=== PATIENT | female | born 1955 | race African-American/Black ===

== ENCOUNTER 2022-07-05 13:04 | Observation (INO) | payer OTHER ==
[2022-07-05] MEDS ORDERED: ACETAMINOPHEN 1000 MG/100 ML BAG IVPB ONE (15:03)
[2022-07-05] MEDS ORDERED: ACETAMINOPHEN INJECTION 100 ML IVPB ONE (15:13)
[2022-07-05 15:44] LABS: BASO % 0.4 % (0-2.0); EOS % 0.6 % (0-4.5); HEMATOCRIT 31.9 % (32.4-45.2); HEMOGLOBIN 10.7 GM/dL (10.7-15.3); LYMPH % 20.9 % (8-40); MCH 29.7 pg (25.7-33.7); MCHC 33.4 g/dl (32.0-36.0); MEAN CELL VOLUME 88.9 fl (80-96); MEAN PLT VOLUME 6.8 fl (7.5-11.1); MONO % 9.8 % (3.8-10.2); NEUT % 68.3 % (42.8-82.8); PLATELET COUNT 345 10^3/uL (134-434); RBC 3.59 M/mm3 (3.60-5.2); WHITE BLOOD COUNT 9.8 K/mm3 (4.0-10.0)
[2022-07-05 16:05] LABS: CALCIUM 9.8 mg/dL (8.5-10.1)
[2022-07-05 16:06] LABS: ALBUMIN 2.7 g/dl (3.4-5.0)
[2022-07-05 16:08] LABS: CREATININE 1.2 mg/dL (0.55-1.3)
[2022-07-05 16:10] LABS: BILIRUBIN,TOTAL 0.2 mg/dL (0.2-1); TOT PROT 7.8 g/dl (6.4-8.2)
[2022-07-05 16:30] LABS: ANISOCYTOSIS 3+; MACROCYTOSIS 0; TARGET CELLS 2+; TEAR DROP CELLS 1+
[2022-07-05] MEDS ORDERED: morphine CARPU-JECT 4 MG/1 ML DISP.SYRIN IVPUSH ONE (17:18)
[2022-07-05] MEDS ORDERED: morphine SULFATE 4 MG/ML VIAL ONE (17:21)
[2022-07-05] MEDS ORDERED: SODIUM CHLORIDE 0.9% 500 ML INFUS.BAG IV ONE (17:21)
[2022-07-05] MEDS ORDERED: morphine CARPU-JECT 2 MG/1 ML DISP.SYRIN IVPUSH ONE (21:28)
[2022-07-05] MEDS ORDERED: ONDANSETRON 4 MG/2 ML VIAL IVPUSH ONE (21:28)
[2022-07-05] MEDS ORDERED: ONDANSETRON 4 MG/2 ML VIAL ONE ×2 (22:00→22:16)
[2022-07-06] MEDS ORDERED: DOCUSATE SODIUM 100 MG CAPSULE (FP) PO PRN (02:45)
[2022-07-06] MEDS ORDERED: ACETAMINOPHEN 500 MG TABLET (FP) PO PRN (02:49)
[2022-07-06] MEDS: oxyCODONE HCL 5 MG TABLET PO PRN ×3 (02:54→20:48)
[2022-07-06 08:41] LABS: BASO % 0.4 % (0-2.0); EOS % 0.4 % (0-4.5); HEMATOCRIT 30.3 % (32.4-45.2); LYMPH % 22.9 % (8-40); MCH 29.3 pg (25.7-33.7); MEAN CELL VOLUME 88.9 fl (80-96); MONO % 8.1 % (3.8-10.2); NEUT % 68.2 % (42.8-82.8); PLATELET COUNT 361 10^3/uL (134-434); RBC 3.41 M/mm3 (3.60-5.2); RDW 23.9 % (11.6-15.6); WHITE BLOOD COUNT 9.3 K/mm3 (4.0-10.0)
[2022-07-06 09:32] LABS: ALBUMIN 2.7 g/dl (3.4-5.0); BLOOD UREA NITROGEN 21.3 mg/dL (7-18); CALCIUM 9.7 mg/dL (8.5-10.1)
[2022-07-06 09:35] LABS: CREATININE 1.1 mg/dL (0.55-1.3)
[2022-07-06 09:38] LABS: BILIRUBIN,TOTAL 0.4 mg/dL (0.2-1); TOT PROT 7.8 g/dl (6.4-8.2)
[2022-07-06] MEDS ORDERED: FENTANYL PATCH WASTE TD PRN ×2 (13:06→16:55)
[2022-07-06] MEDS ORDERED: fentaNYL 25mcg/hr PATCH.TD72 TD SCH (13:45)
[2022-07-06] MEDS ORDERED: fentaNYL 75mcg/hr PATCH.TD72 TD SCH (17:00)
[2022-07-06] MEDS: LOSARTAN POTASSIUM 25 MG TABLET PO SCH (17:52)
[2022-07-06] MEDS: ABACAVIR/DOLUTEGRAVIR/LAMIVUDI (TRIUMEQ) TABLET -NF PO SCH (20:48)
[2022-07-06] MEDS: INSULIN (LEVEMIR) 100 UNITS/ML UNITS SQ SCH (21:31)
[2022-07-07] MEDS: INSULIN SLIDING SCALE (NOVOLOG) 1 VIAL SQ SCH ×3 (06:21→16:48)
[2022-07-07] MEDS: oxyCODONE HCL 5 MG TABLET PO PRN (11:03)
[2022-07-07] MEDS: ENOXAPARIN NA (PORCINE) 40 MG/0.4 ML DISP.SYRIN SQ SCH (11:05)
[2022-07-07] MEDS: LOSARTAN POTASSIUM 25 MG TABLET PO SCH (11:05)
[2022-07-07] MEDS: ABACAVIR/DOLUTEGRAVIR/LAMIVUDI (TRIUMEQ) TABLET -NF PO SCH (11:06)
[2022-07-07 14:37] VITALS: BMI 17.3
[2022-07-07] MEDS: morphine SO4 SUSTAINED ACTING 15 MG TABLET.SA PO SCH ×2 (15:32→23:07)
[2022-07-07] MEDS: AMINO ACIDS/PROTEIN HYDROLYS 30 ML LIQUID.PKT PO SCH (16:49)
[2022-07-07] MEDS: INSULIN (LEVEMIR) 100 UNITS/ML UNITS SQ SCH (21:12)
[2022-07-08] MEDS: morphine SO4 SUSTAINED ACTING 15 MG TABLET.SA PO SCH ×2 (00:06→11:00)
[2022-07-08 05:54] VITALS: RESP 18
[2022-07-08] MEDS: INSULIN SLIDING SCALE (NOVOLOG) 1 VIAL SQ SCH ×3 (06:07→16:45)
[2022-07-08] MEDS: AMINO ACIDS/PROTEIN HYDROLYS 30 ML LIQUID.PKT PO SCH ×2 (07:36→16:45)
[2022-07-08] MEDS: LOSARTAN POTASSIUM 25 MG TABLET PO SCH (09:17)
[2022-07-08] MEDS: ABACAVIR/DOLUTEGRAVIR/LAMIVUDI (TRIUMEQ) TABLET -NF PO SCH (09:18)
[2022-07-08] MEDS: ENOXAPARIN NA (PORCINE) 40 MG/0.4 ML DISP.SYRIN SQ SCH (09:18)
[2022-07-08] MEDS: oxyCODONE HCL 5 MG TABLET PO PRN (15:46)
[2022-07-08 19:52] VITALS: BP 144/74; PULSE 101; TEMP 98.2
== END 2022-07-08 19:32 ==
LOC: JER 13:04 → JERBED 21:26 → J4S 07-06 03:17
PROVIDERS: ADMIT Internal Medicine; ATTEND Internal Medicine
PROC: 3E033NZ Introduction of Analgesics, Hypnotics, Sedatives into Peripheral Vein, Percutaneous Approach (ICD-10-PCS; principal; 2022-07-05)
PROC: 3E023GC Introduction of Other Therapeutic Substance into Muscle, Percutaneous Approach (ICD-10-PCS; 2022-07-05)
PROC: 3E013VG Introduction of Insulin into Subcutaneous Tissue, Percutaneous Approach (ICD-10-PCS; 2022-07-05)
PROC: 3E0337Z Introduction of Electrolytic and Water Balance Substance into Peripheral Vein, Percutaneous Approach (ICD-10-PCS; 2022-07-05)
DX: C34.90 Malignant neoplasm of unspecified part of unspecified bronchus or lung (principal); C78.00 Secondary malignant neoplasm of unspecified lung; I10 Essential (primary) hypertension; R07.9 Chest pain, unspecified; M54.9 Dorsalgia, unspecified; Z29.8 Encounter for other specified prophylactic measures
CPT/HCPCS: 0241U-QW; 36415; 71275-TC; 72128-TC; 72131-TC; 74174-TC; 76705-TC; 80053; 82962; 83690; 84484; 85025; 93005; 93010; 96372; 96374; 96375; 99285-25; G0378; Q9967

== ENCOUNTER 2022-07-21 09:29 | Inpatient (IN) | payer OTHER ==
[2022-07-21] MEDS ORDERED: PIPERACILLIN/TAZOBACTAM 4.5 GM VIAL IVPB ONE (09:35)
[2022-07-21] MEDS ORDERED: VANCOMYCIN 1,000 MG in DEXTROSE 5%-WATER - 250 ML IVPB ONE (09:35)
[2022-07-21] MEDS ORDERED: SODIUM CHLORIDE 0.9% 1000 ML INFUS.BAG IV ONE (09:36)
[2022-07-21] MEDS ORDERED: ACETAMINOPHEN 1000 MG/100 ML BAG IVPB ONE (09:36)
[2022-07-21] MEDS ORDERED: PIPERACILLIN/TAZOB 4.5 GM 4.5 GM/100 ML BAG IVPB ONE (09:55)
[2022-07-21] MEDS ORDERED: ACETAMINOPHEN INJECTION 100 ML IVPB ONE (09:55)
[2022-07-21] MEDS ORDERED: VANCOMYCIN/WATER FOR INJ (PEG) 1,000 MG/200 ML BAG IVPB ONE (09:55)
[2022-07-21 10:06] LABS: EPI CELLS 5 /uL (0-25.1); HYALINE CASTS 1 /uL (0-3.1); PH,URINE 5.5 (5.0-8.0); URINE APPEARANCE CLEAR; URINE BACTERIA 6 /uL (0-1359); URINE BILIRUBIN NEGATIVE (NEGATIVE); URINE COLOR YELLOW; URINE GLUCOSE (UA) NEGATIVE (NEGATIVE); URINE KETONE NEGATIVE (NEGATIVE); URINE LEUK ESTERASE NEGATIVE (NEGATIVE); URINE NITRITE NEGATIVE (NEGATIVE); URINE PROTEIN TRACE (NEGATIVE); URINE RBC 7 /uL (0-23.9); URINE UROBILINOGEN 0.2 mg/dL (0.2-1.0); URINE WBC 4 /uL (0-25.8)
[2022-07-21 10:28] LABS: VENOUS BASE EXCESS -5.1 mmol/L (-2-2); VENOUS O2 SATURATION 53.8 % (70-80); VENOUS PCO2 46.3 mmHg (38-52); VENOUS PH 7.285 (7.310-7.410)
[2022-07-21 10:29] LABS: BASO % 0.1 % (0-2.0); EOS % 0.2 % (0-4.5); HEMOGLOBIN 10.6 GM/dL (10.7-15.3); LYMPH % 10.2 % (8-40); MCH 27.7 pg (25.7-33.7); MCHC 31.3 g/dl (32.0-36.0); MEAN CELL VOLUME 88.6 fl (80-96); MEAN PLT VOLUME 7.8 fl (7.5-11.1); MONO % 5.2 % (3.8-10.2); NEUT % 84.3 % (42.8-82.8); PLATELET COUNT 246 10^3/uL (134-434); RBC 3.84 M/mm3 (3.60-5.2); RDW 23.7 % (11.6-15.6); WHITE BLOOD COUNT 17.2 K/mm3 (4.0-10.0)
[2022-07-21 10:36] LABS: INR 1.45 (0.83-1.09); PROTHROMBIN TIME (PATIENT) 16.8 SEC (9.7-13.0)
[2022-07-21 10:38] LABS: ACTIVATED PTT 24.8 SECONDS (25.2-36.5)
[2022-07-21 10:53] LABS: CHLORIDE 132 mmol/L (98-107)
[2022-07-21 10:55] LABS: ALBUMIN 2.3 g/dl (3.4-5.0); CO2 25 mmol/L (21-32); GLUCOSE,RANDOM 315 mg/dL (74-106)
[2022-07-21 10:56] LABS: CALCIUM 10.5 mg/dL (8.5-10.1)
[2022-07-21 11:00] LABS: SGOT/AST 22 U/L (15-37); SGPT/ALT 19 U/L (13-61)
[2022-07-21 11:01] LABS: BILIRUBIN,TOTAL 0.2 mg/dL (0.2-1); TOT PROT 7.8 g/dl (6.4-8.2)
[2022-07-21 11:02] LABS: ALK PHOS 101 U/L (45-117)
[2022-07-21 11:17] LABS: ANISOCYTOSIS 1+; MACROCYTOSIS 1+
[2022-07-21 11:24] LABS: ANION GAP 5 MMOL/L (8-16); BLOOD UREA NITROGEN 115.9 mg/dL (7-18); SODIUM 162 mmol/L (136-145)
[2022-07-21] MEDS ORDERED: morphine CARPU-JECT 2 MG/1 ML DISP.SYRIN IVPUSH ONE (13:01)
[2022-07-21] MEDS ORDERED: SODIUM CHLORIDE 1,000 ML IV SCH (15:00)
[2022-07-21] MEDS ORDERED: SODIUM CHLORIDE 0.45% 1,000 ML IV SCH (17:00)
[2022-07-21 17:05] LABS: LACTIC ACID 2.4 mmol/L (0.4-2.0)
[2022-07-21] MEDS: PIPERACILLIN/TAZOB 2.25 GM 2.25 GM in DEXTROSE 5%-WATER - 50 ML IVPB SCH (17:25)
[2022-07-21] MEDS: INSULIN SLIDING SCALE (NOVOLOG) 1 VIAL SQ SCH ×2 (17:32→21:34)
[2022-07-21 18:18] LABS: EPI CELLS 11 /uL (0-25.1); HYALINE CASTS 1 /uL (0-3.1); URINE APPEARANCE CLOUDY; URINE BACTERIA 167 /uL (0-1359); URINE BILIRUBIN NEGATIVE (NEGATIVE); URINE COLOR YELLOW; URINE GLUCOSE (UA) NEGATIVE (NEGATIVE); URINE KETONE NEGATIVE (NEGATIVE); URINE LEUK ESTERASE 2+ (NEGATIVE); URINE NITRITE NEGATIVE (NEGATIVE); URINE PROTEIN TRACE (NEGATIVE); URINE RBC 10 /uL (0-23.9); URINE UROBILINOGEN 0.2 mg/dL (0.2-1.0); URINE WBC 96 /uL (0-25.8)
[2022-07-21] MEDS: HEPARIN NA (PORCINE) 5,000 UNITS/ML 1ML VIAL SQ SCH (21:29)
[2022-07-21] MEDS ORDERED: INSULIN (LEVEMIR) 100 UNITS/ML UNITS SQ SCH (22:00)
[2022-07-22] MEDS: PIPERACILLIN/TAZOB 2.25 GM 2.25 GM in DEXTROSE 5%-WATER - 50 ML IVPB SCH ×3 (02:25→17:47)
[2022-07-22] MEDS: HEPARIN NA (PORCINE) 5,000 UNITS/ML 1ML VIAL SQ SCH ×3 (05:38→21:53)
[2022-07-22] MEDS ORDERED: DEXTROSE 50%-WATER 25 GM/50 ML DISP.SYRIN ONE (06:22)
[2022-07-22] MEDS ORDERED: DEXTROSE 50%-WATER 25 GM/50 ML DISP.SYRIN IVPUSH ONE ×2 (06:34→06:45)
[2022-07-22] MEDS: INSULIN SLIDING SCALE (NOVOLOG) 1 VIAL SQ SCH ×4 (06:36→22:01)
[2022-07-22 07:21] LABS: BASO % 0.1 % (0-2.0); EOS % 0.3 % (0-4.5); HEMATOCRIT 31.1 % (32.4-45.2); HEMOGLOBIN 9.8 GM/dL (10.7-15.3); MCH 28.3 pg (25.7-33.7); MCHC 31.7 g/dl (32.0-36.0); MEAN CELL VOLUME 89.3 fl (80-96); MONO % 4.4 % (3.8-10.2); NEUT % 88.2 % (42.8-82.8); PLATELET COUNT 185 10^3/uL (134-434); RBC 3.48 M/mm3 (3.60-5.2); RDW 24.1 % (11.6-15.6); WHITE BLOOD COUNT 16.2 K/mm3 (4.0-10.0)
[2022-07-22 07:39] LABS: CHLORIDE 140 mmol/L (98-107)
[2022-07-22 07:47] LABS: ALBUMIN 2.1 g/dl (3.4-5.0); CALCIUM 10.1 mg/dL (8.5-10.1)
[2022-07-22 07:48] LABS: CO2 21 mmol/L (21-32)
[2022-07-22 07:51] LABS: CREATININE 2.2 mg/dL (0.55-1.3); SGOT/AST 43 U/L (15-37); SGPT/ALT 24 U/L (13-61)
[2022-07-22 07:52] LABS: TOT PROT 7.3 g/dl (6.4-8.2)
[2022-07-22 07:53] LABS: BILIRUBIN,TOTAL 0.2 mg/dL (0.2-1)
[2022-07-22 07:54] LABS: ALK PHOS 100 U/L (45-117)
[2022-07-22 07:59] LABS: ANION GAP 6 MMOL/L (8-16); BLOOD UREA NITROGEN 81.7 mg/dL (7-18); GLUCOSE,RANDOM 17 mg/dL (74-106); SODIUM 166 mmol/L (136-145)
[2022-07-22] MEDS ORDERED: DEXTROSE 50%-WATER - 25 GM/50 ML VIAL IVPUSH ONE (08:30)
[2022-07-22] MEDS ORDERED: DEXTROSE 5%-0.45% SALINE 1,000 ML IV SCH (09:00)
[2022-07-22] MEDS ORDERED: DEXTROSE 5%-WATER - 1,000 ML with POTASSIUM CHLORIDE 20 MEQ IV SCH ×2 (12:30→13:15)
[2022-07-22] MEDS ORDERED: KCL 10 MEQ IVPB 10 MEQ/100 ML INFUS.BAG IVPB SCH (12:45)
[2022-07-22] MEDS: DEXTROSE 5%-WATER - 1,000 ML with POTASSIUM CHLORIDE 20 MEQ IV SCH (15:43)
[2022-07-22] MEDS: morphine SO4 SUSTAINED ACTING 15 MG TABLET.SA PO SCH (21:53)
[2022-07-23] MEDS: PIPERACILLIN/TAZOB 2.25 GM 2.25 GM in DEXTROSE 5%-WATER - 50 ML IVPB SCH ×3 (02:30→17:06)
[2022-07-23] MEDS: DEXTROSE 5%-WATER - 1,000 ML with POTASSIUM CHLORIDE 20 MEQ IV SCH ×2 (03:00→10:07)
[2022-07-23] MEDS: HEPARIN NA (PORCINE) 5,000 UNITS/ML 1ML VIAL SQ SCH ×3 (06:16→22:16)
[2022-07-23] MEDS: INSULIN SLIDING SCALE (NOVOLOG) 1 VIAL SQ SCH ×4 (06:35→22:22)
[2022-07-23 08:09] LABS: ALBUMIN 1.9 g/dl (3.4-5.0); BLOOD UREA NITROGEN 69.2 mg/dL (7-18); CALCIUM 9.6 mg/dL (8.5-10.1); MAGNESIUM 2.9 mg/dL (1.8-2.4)
[2022-07-23 08:13] LABS: CREATININE 2.3 mg/dL (0.55-1.3)
[2022-07-23 08:17] LABS: BILIRUBIN,TOTAL 0.4 mg/dL (0.2-1)
[2022-07-23] MEDS: morphine SO4 SUSTAINED ACTING 15 MG TABLET.SA PO SCH ×3 (10:04→22:16)
[2022-07-23 12:57] VITALS: BMI 15.5
[2022-07-23] MEDS: SCOPOLAMINE HYDROBROMIDE 1 PATCH PATCH.TD72 TD SCH (13:57)
[2022-07-23] MEDS: DEXTROSE 5%-WATER - 1,000 ML with POTASSIUM CHLORIDE 10 MEQ IV SCH (13:57)
[2022-07-23] MEDS: AMINO ACIDS/PROTEIN HYDROLYS 30 ML LIQUID.PKT PO SCH (17:06)
[2022-07-24] MEDS: PIPERACILLIN/TAZOB 2.25 GM 2.25 GM in DEXTROSE 5%-WATER - 50 ML IVPB SCH ×3 (03:41→18:25)
[2022-07-24] MEDS: DEXTROSE 5%-WATER - 1,000 ML with POTASSIUM CHLORIDE 10 MEQ IV SCH ×3 (03:42→23:35)
[2022-07-24] MEDS: HEPARIN NA (PORCINE) 5,000 UNITS/ML 1ML VIAL SQ SCH ×3 (06:04→21:18)
[2022-07-24] MEDS: INSULIN SLIDING SCALE (NOVOLOG) 1 VIAL SQ SCH ×4 (06:07→21:19)
[2022-07-24 08:23] LABS: ALBUMIN 1.9 g/dl (3.4-5.0); BLOOD UREA NITROGEN 67.2 mg/dL (7-18); CALCIUM 9.8 mg/dL (8.5-10.1); MAGNESIUM 2.8 mg/dL (1.8-2.4)
[2022-07-24 08:26] LABS: CREATININE 2.4 mg/dL (0.55-1.3)
[2022-07-24 08:28] LABS: BILIRUBIN,TOTAL 0.5 mg/dL (0.2-1); TOT PROT 7.3 g/dl (6.4-8.2)
[2022-07-24] MEDS ORDERED: morphine SO4 SUSTAINED ACTING 15 MG TABLET.SA PO SCH (10:00)
[2022-07-24] MEDS: AMINO ACIDS/PROTEIN HYDROLYS 30 ML LIQUID.PKT PO SCH ×2 (10:03→18:13)
[2022-07-25] MEDS: PIPERACILLIN/TAZOB 2.25 GM 2.25 GM in DEXTROSE 5%-WATER - 50 ML IVPB SCH ×3 (01:06→18:55)
[2022-07-25] MEDS: INSULIN SLIDING SCALE (NOVOLOG) 1 VIAL SQ SCH ×4 (06:10→22:06)
[2022-07-25] MEDS: HEPARIN NA (PORCINE) 5,000 UNITS/ML 1ML VIAL SQ SCH ×3 (06:10→21:40)
[2022-07-25] MEDS: DEXTROSE 5%-WATER - 1,000 ML with POTASSIUM CHLORIDE 10 MEQ IV SCH (06:31)
[2022-07-25 07:16] LABS: EOS % 0.3 % (0-4.5); HEMATOCRIT 28.8 % (32.4-45.2); HEMOGLOBIN 9.2 GM/dL (10.7-15.3); LYMPH % 7.4 % (8-40); MCH 28.2 pg (25.7-33.7); MCHC 31.8 g/dl (32.0-36.0); MEAN CELL VOLUME 88.7 fl (80-96); MONO % 3.2 % (3.8-10.2); NEUT % 89.1 % (42.8-82.8); PLATELET COUNT 128 10^3/uL (134-434); RBC 3.25 M/mm3 (3.60-5.2); WHITE BLOOD COUNT 18.5 K/mm3 (4.0-10.0)
[2022-07-25 08:45] LABS: ALBUMIN 1.8 g/dl (3.4-5.0); BILIRUBIN,TOTAL 0.5 mg/dL (0.2-1); BLOOD UREA NITROGEN 48.2 mg/dL (7-18); CALCIUM 9.8 mg/dL (8.5-10.1); CREATININE 1.9 mg/dL (0.55-1.3); TOT PROT 6.8 g/dl (6.4-8.2)
[2022-07-25] MEDS: AMINO ACIDS/PROTEIN HYDROLYS 30 ML LIQUID.PKT PO SCH ×2 (10:02→18:54)
[2022-07-25 10:14] LABS: ANISOCYTOSIS 2+; MACROCYTOSIS 0
[2022-07-25] MEDS ORDERED: FENTANYL PATCH WASTE TD PRN (10:24)
[2022-07-25] MEDS ORDERED: SODIUM PHOSPHATE/NA BIPHOS 133 ML ENEMA RC ONE (10:24)
[2022-07-25] MEDS ORDERED: fentaNYL 25mcg/hr PATCH.TD72 TD SCH (10:30)
[2022-07-25] MEDS ORDERED: DEXTROSE 5%-WATER - 1,000 ML with POTASSIUM CHLORIDE 10 MEQ IV SCH (11:30)
[2022-07-25] MEDS: POTASSIUM CHLORIDE 10 MEQ in DEXTROSE 5%-WATER - 1,000 ML IV SCH (18:50)
[2022-07-26] MEDS: POTASSIUM CHLORIDE 10 MEQ in DEXTROSE 5%-WATER - 1,000 ML IV SCH ×2 (02:14→17:07)
[2022-07-26] MEDS: PIPERACILLIN/TAZOB 2.25 GM 2.25 GM in DEXTROSE 5%-WATER - 50 ML IVPB SCH ×3 (02:15→17:07)
[2022-07-26] MEDS: HEPARIN NA (PORCINE) 5,000 UNITS/ML 1ML VIAL SQ SCH ×3 (05:41→22:02)
[2022-07-26] MEDS: INSULIN SLIDING SCALE (NOVOLOG) 1 VIAL SQ SCH ×4 (06:07→22:02)
[2022-07-26 07:35] LABS: ALBUMIN 1.8 g/dl (3.4-5.0); BLOOD UREA NITROGEN 38.8 mg/dL (7-18); CALCIUM 9.6 mg/dL (8.5-10.1)
[2022-07-26 07:37] LABS: CREATININE 1.6 mg/dL (0.55-1.3)
[2022-07-26 07:39] LABS: BILIRUBIN,TOTAL 0.6 mg/dL (0.2-1); TOT PROT 6.9 g/dl (6.4-8.2)
[2022-07-26] MEDS: AMINO ACIDS/PROTEIN HYDROLYS 30 ML LIQUID.PKT PO SCH ×2 (09:26→17:07)
[2022-07-26] MEDS ORDERED: ABACAVIR/DOLUTEGRAVIR/LAMIVUDI (TRIUMEQ) TABLET PO SCH (10:00)
[2022-07-26] MEDS: SCOPOLAMINE HYDROBROMIDE 1 PATCH PATCH.TD72 TD SCH (13:16)
[2022-07-26] MEDS ORDERED: FENTANYL PATCH WASTE TD PRN (19:51)
[2022-07-26] MEDS ORDERED: INSULIN (NOVOLOG) ASPART 100 UNITS/ML 10ML VIAL ONE (22:01)
[2022-07-27] MEDS: POTASSIUM CHLORIDE 10 MEQ in DEXTROSE 5%-WATER - 1,000 ML IV SCH ×2 (01:15→09:04)
[2022-07-27] MEDS: PIPERACILLIN/TAZOB 2.25 GM 2.25 GM in DEXTROSE 5%-WATER - 50 ML IVPB SCH ×3 (01:15→18:37)
[2022-07-27] MEDS: INSULIN SLIDING SCALE (NOVOLOG) 1 VIAL SQ SCH ×5 (06:00→22:10)
[2022-07-27] MEDS: HEPARIN NA (PORCINE) 5,000 UNITS/ML 1ML VIAL SQ SCH (06:01)
[2022-07-27] MEDS: AMINO ACIDS/PROTEIN HYDROLYS 30 ML LIQUID.PKT PO SCH ×2 (09:08→16:56)
[2022-07-27] MEDS ORDERED: ABACAVIR/DOLUTEGRAVIR/LAMIVUDI (TRIUMEQ) TABLET PO SCH (10:00)
[2022-07-27] MEDS ORDERED: FENTANYL PATCH WASTE TD PRN (13:01)
[2022-07-27] MEDS: fentaNYL 50mcg/hr PATCH.TD72 TD SCH (13:38)
[2022-07-27] MEDS: AMINO ACIDS 4.25%/D5W 1,000 ML IV SCH (14:37)
[2022-07-27] MEDS ORDERED: INSULIN (NOVOLOG) ASPART 100 UNITS/ML 10ML VIAL ONE ×2 (16:57→21:04)
[2022-07-28] MEDS: PIPERACILLIN/TAZOB 2.25 GM 2.25 GM in DEXTROSE 5%-WATER - 50 ML IVPB SCH ×3 (01:50→17:28)
[2022-07-28] MEDS: AMINO ACIDS 4.25%/D5W 1,000 ML IV SCH ×2 (01:51→11:59)
[2022-07-28] MEDS: INSULIN SLIDING SCALE (NOVOLOG) 1 VIAL SQ SCH ×4 (06:16→21:30)
[2022-07-28 08:04] LABS: ALBUMIN 1.7 g/dl (3.4-5.0)
[2022-07-28 08:05] LABS: BLOOD UREA NITROGEN 33.3 mg/dL (7-18); CALCIUM 9.4 mg/dL (8.5-10.1)
[2022-07-28 08:08] LABS: CREATININE 1.6 mg/dL (0.55-1.3)
[2022-07-28 08:09] LABS: BILIRUBIN,TOTAL 0.4 mg/dL (0.2-1); TOT PROT 6.8 g/dl (6.4-8.2)
[2022-07-28] MEDS: AMINO ACIDS/PROTEIN HYDROLYS 30 ML LIQUID.PKT PO SCH ×2 (09:00→17:22)
[2022-07-28] MEDS ORDERED: fentaNYL 25mcg/hr PATCH.TD72 TD SCH (10:30)
[2022-07-28] MEDS: POTASSIUM CHLORIDE 10 MEQ in AMINO ACIDS 4.25%/D5W 1,000 ML IV SCH (16:45)
[2022-07-28] MEDS ORDERED: INSULIN (NOVOLOG) ASPART 100 UNITS/ML 10ML VIAL ONE (21:06)
[2022-07-29] MEDS: PIPERACILLIN/TAZOB 2.25 GM 2.25 GM in DEXTROSE 5%-WATER - 50 ML IVPB SCH ×3 (01:26→17:19)
[2022-07-29] MEDS: POTASSIUM CHLORIDE 10 MEQ in AMINO ACIDS 4.25%/D5W 1,000 ML IV SCH ×3 (03:00→17:04)
[2022-07-29] MEDS ORDERED: INSULIN (NOVOLOG) ASPART 100 UNITS/ML 10ML VIAL ONE (06:37)
[2022-07-29] MEDS: INSULIN SLIDING SCALE (NOVOLOG) 1 VIAL SQ SCH ×4 (06:38→22:03)
[2022-07-29] MEDS: AMINO ACIDS/PROTEIN HYDROLYS 30 ML LIQUID.PKT PO SCH ×2 (09:37→17:18)
[2022-07-29] MEDS ORDERED: SCOPOLAMINE HYDROBROMIDE 1 PATCH PATCH.TD72 TD SCH (13:00)
[2022-07-30] MEDS: PIPERACILLIN/TAZOB 2.25 GM 2.25 GM in DEXTROSE 5%-WATER - 50 ML IVPB SCH ×3 (03:00→17:27)
[2022-07-30] MEDS: POTASSIUM CHLORIDE 10 MEQ in AMINO ACIDS 4.25%/D5W 1,000 ML IV SCH (06:41)
[2022-07-30] MEDS: INSULIN SLIDING SCALE (NOVOLOG) 1 VIAL SQ SCH ×4 (07:06→22:06)
[2022-07-30] MEDS ORDERED: LACTATED RINGERS SOLUTION 1000 ML INFUS.BAG IV ONE (07:55)
[2022-07-30 08:45] LABS: ALLENS TEST POSITIVE; ARTERIAL BLD GAS O2 SATURATION 99.6 % (95-98); ARTERIAL BLOOD GAS BASE EXCESS -13.2 mmol/L (-2-2); ARTERIAL BLOOD GAS PO2 319.6 mmHg (80-100); ARTERIAL BLOOD GAS pH 7.237 (7.350-7.450)
[2022-07-30 09:00] LABS: BASO % 0.2 % (0-2.0); EOS % 0.1 % (0-4.5); HEMATOCRIT 24.9 % (32.4-45.2); LYMPH % 6.7 % (8-40); MCH 28.2 pg (25.7-33.7); MEAN CELL VOLUME 88.3 fl (80-96); MONO % 2.8 % (3.8-10.2); NEUT % 90.2 % (42.8-82.8); PLATELET COUNT 206 10^3/uL (134-434); RBC 2.83 M/mm3 (3.60-5.2); RDW 23.7 % (11.6-15.6); WHITE BLOOD COUNT 19.4 K/mm3 (4.0-10.0)
[2022-07-30 09:17] LABS: CALCIUM 8.7 mg/dL (8.5-10.1)
[2022-07-30 09:18] LABS: ALBUMIN 1.5 g/dl (3.4-5.0); MAGNESIUM 1.5 mg/dL (1.8-2.4)
[2022-07-30 09:21] LABS: CREATININE 2.2 mg/dL (0.55-1.3); PHOSPHOROUS 2.8 mg/dL (2.5-4.9)
[2022-07-30 09:22] LABS: BILIRUBIN,TOTAL 0.2 mg/dL (0.2-1); TOT PROT 6.7 g/dl (6.4-8.2)
[2022-07-30 09:30] LABS: BLOOD UREA NITROGEN 68.2 mg/dL (7-18)
[2022-07-30] MEDS: AMINO ACIDS/PROTEIN HYDROLYS 30 ML LIQUID.PKT PO SCH ×2 (10:36→17:27)
[2022-07-30] MEDS ORDERED: MAGNESIUM 2GM/50ML STERILE WATER IVPB IVPB ONE (11:30)
[2022-07-30 11:37] LABS: ANISOCYTOSIS 1+; MACROCYTOSIS 0
[2022-07-30] MEDS: fentaNYL 50mcg/hr PATCH.TD72 TD SCH (15:13)
[2022-07-31] MEDS: PIPERACILLIN/TAZOB 2.25 GM 2.25 GM in DEXTROSE 5%-WATER - 50 ML IVPB SCH ×3 (01:43→17:16)
[2022-07-31] MEDS: fentaNYL 50mcg/hr PATCH.TD72 TD SCH (02:51)
[2022-07-31] MEDS ORDERED: fentaNYL 50mcg/hr PATCH.TD72 TD SCH (03:00)
[2022-07-31] MEDS: INSULIN SLIDING SCALE (NOVOLOG) 1 VIAL SQ SCH ×3 (06:29→17:16)
[2022-07-31] MEDS: AMINO ACIDS/PROTEIN HYDROLYS 30 ML LIQUID.PKT PO SCH ×2 (08:56→17:11)
[2022-07-31 12:20] LABS: ARTERIAL BLD GAS O2 SATURATION 70.4 % (95-98); ARTERIAL BLOOD GAS BASE EXCESS -16.8 mmol/L (-2-2); ARTERIAL BLOOD GAS PO2 48.1 mmHg (80-100)
[2022-07-31 12:21] LABS: ALLENS TEST POSITIVE
[2022-07-31 12:22] LABS: VENT MODE S/T; VENT RATE 12
[2022-07-31 12:25] LABS: ARTERIAL BLOOD GAS pH 7.114 (7.350-7.450)
[2022-08-01 00:06] VITALS: RESP 20
[2022-08-01] MEDS: INSULIN SLIDING SCALE (NOVOLOG) 1 VIAL SQ SCH (00:12)
[2022-08-01] MEDS ORDERED: morphine CARPU-JECT 2 MG/1 ML DISP.SYRIN IVPUSH STA (00:26)
[2022-08-01] MEDS ORDERED: morphine SULFATE 4 MG/ML VIAL IVPUSH PRN (00:31)
[2022-08-01] MEDS ORDERED: MORPHINE SULFATE/0.9% NACL/PF 100 MG/100 ML BAG IVPB SCH (01:00)
[2022-08-01 01:33] VITALS: BP 48/35; PULSE 80; TEMP 97.2
== END 2022-08-01 02:02 | disposition expired | DRG 974 ==
LOC: JER 09:29 → JERBED 14:34 → J4W 15:40 → J6S 07-26 18:44 → JICU 08-01 00:05
PROVIDERS: ADMIT Internal Medicine; ATTEND Internal Medicine
PROC: 0BH17EZ Insertion of Endotracheal Airway into Trachea, Via Natural or Artificial Opening (ICD-10-PCS; principal; 2022-07-31)
PROC: 5A1935Z Respiratory Ventilation, Less than 24 Consecutive Hours (ICD-10-PCS; 2022-07-31)
PROC: 5A12012 Performance of Cardiac Output, Single, Manual (ICD-10-PCS; 2022-07-31)
DX: J18.9 Pneumonia, unspecified organism (principal); J96.00 Acute respiratory failure, unspecified whether with hypoxia or hypercapnia; B20 Human immunodeficiency virus [HIV] disease; N17.9 Acute kidney failure, unspecified; Z68.1 Body mass index [BMI] 19.9 or less, adult; E87.0 Hyperosmolality and hypernatremia; I24.8 Other forms of acute ischemic heart disease; R64 Cachexia; C34.11 Malignant neoplasm of upper lobe, right bronchus or lung; C79.51 Secondary malignant neoplasm of bone; C79.31 Secondary malignant neoplasm of brain; R41.82 Altered mental status, unspecified; E78.5 Hyperlipidemia, unspecified; I10 Essential (primary) hypertension; R00.0 Tachycardia, unspecified; E86.0 Dehydration; E83.52 Hypercalcemia; E11.65 Type 2 diabetes mellitus with hyperglycemia; I27.20 Pulmonary hypertension, unspecified; R62.7 Adult failure to thrive; M54.9 Dorsalgia, unspecified; Z71.89 Other specified counseling; I46.9 Cardiac arrest, cause unspecified
CPT/HCPCS: 0241U-QW; 36415; 36600; 70450-TC; 71045-TC-FY; 76775-TC; 80053; 81003; 82010; 82310; 82803; 82962; 83605; 83735; 83970; 84100; 84484; 85025; 85610; 85730; 87040; 87086; 93005; 93010; 93306-TC; 94002; 94660; 99285-25; J1644